=== PATIENT | female | born 1985 | race Caucasian/White ===

== ENCOUNTER 2016-10-08 13:59 | Inpatient (IN) | payer OTHER ==
--- NOTE | 2016-10-08 15:34 | PDOC ---
Attending Attestation - Resident Resident Name: Michael Briggs - ED Attending Attestation I have performed the following: I have examined & evaluated the patient, The case was reviewed & discussed with the resident, I agree w/resident's findings & plan, Exceptions are as noted - HPI HPI: 31 yo F hx factor V Leiden presents with multiple neuro symptoms. She states she has had bifrontal headache for the past few days, but has now developed R sided facial droop, L eye is shut tight, having difficulty opening it. She has had difficulty drinking, noting that she drools when she drinks. She also states she has had tingling to B/L hands and feet. She has had weakness in her extremities, noting that she almost dropped her child upon picking her up. The factor V Leiden was discovered after a miscarriage. She is not on any medication for it. Also of note, her dog was recently bitten by a tick. - Physicial Exam PE: GENERAL: Awake, alert, and fully oriented, in no acute distress HEAD: No signs of trauma EYES: PERRLA, EOMI, sclera anicteric, conjunctiva clear ENT: Auricles normal inspection, hearing grossly normal, nares patent, oropharynx clear without exudates. Moist mucosa NECK: Normal ROM, supple, no lymphadenopathy, JVD, or masses LUNGS: Breath sounds equal, clear to auscultation bilaterally. No wheezes, and no crackles HEART: Regular rate and rhythm, normal S1 and S2, no murmurs, rubs or gallops ABDOMEN: Soft, nontender, normoactive bowel sounds. No guarding, no rebound. No masses EXTREMITIES: Normal range of motion, no edema. No clubbing or cyanosis. No cords, erythema, or tenderness NEUROLOGICAL: R-sided facial droop involving the forehead. L eye shut tight with fine tremors to the upper eyelid. SKIN: Warm, Dry, normal turgor, no rashes or lesions noted. - Medical Decision Making Presentation is unusual- with weakness of the R face, L upper extremity, and numbness to hands and feet. L eye is shut tight with tremors, which does not correlate with Brown's palsy on the R side. Skin exam was performed- entire body , no ticks visualized, no rashes. Unclear what the etiology of the symptoms is, but concern for CVA (hypercoaguable state), possible Lyme, MS. Will obtain labs , Lyme titers, CTH, and consult with neuro.
[2016-10-08 16:28] LABS: BASOPHIL 0.7 % (0-2.0); EOSINOPHIL 1.3 % (0-4.5); MCH 29.8 pg (25.7-33.7); MEAN CELL VOLUME 87.5 fl (80-96); MEAN PLT VOLUME 9.4 fl (7.5-11.1); NEUTROPHILS 45.9 % (42.8-82.8); PLATELET COUNT 261 K/MM3 (134-434); WHITE BLOOD COUNT 8.2 K/mm3 (4.0-10.0)
[2016-10-08 16:30] LABS: URINE APPEARANCE SLCLOUDY; URINE BILIRUBIN NEGATIVE (NEGATIVE); URINE BLOOD 1+ (NEGATIVE); URINE COLOR STRAW; URINE GLUCOSE (UA) NEGATIVE (NEGATIVE); URINE KETONE NEGATIVE (NEGATIVE); URINE LEUK ESTERASE NEGATIVE (NEGATIVE); URINE NITRITE NEGATIVE (NEGATIVE); URINE PROTEIN NEGATIVE (NEGATIVE); URINE UROBILINOGEN NEGATIVE mg/dL (0.2-1.0)
[2016-10-08 16:33] LABS: URINE BACTERIA RARE /hpf (NONE SEEN); URINE MUCUS RARE; URINE RBC 14 /hpf (0-3); URINE WBC 1 /hpf (3-5)
[2016-10-08 17:00] LABS: INR 0.97 (0.82-1.09); PROTHROMBIN TIME (PATIENT) 10.7 SEC (9.98-11.88)
[2016-10-08 17:02] LABS: ACTIVATED PTT 32.7 SECONDS (26.9-34.4)
--- NOTE | 2016-10-08 17:21 | PDOC ---
History of Present Illness - General Chief Complaint: CVA/TIA Stated Complaint: R/O STROKE Time Seen by Provider: 10/08/16 14:31 History Source: Patient Exam Limitations: No Limitations - History of Present Illness Initial Comments: 10/08/16 16:34 The patient is a 31F with a PMH of hypothyroidism x 5 years and factor V Leiden who presents to the ED with 3 days of facial drooping. The patient states that she has had a headache x 1 week. 3 days ago her eye started getting low. She also states that she feels like her face "turned crooked". The patient also states that her fingers felt weak and that she could not drink out of a straw. She also states that she has hand and leg numbness x 1.5 weeks. This has never happened to the patient before. She has no recent travel, no sick contacts, no rashes, and no insect bites that the patient knows about. All: none Past History - Past Medical History Allergies/Adverse Reactions: Allergies Allergy/AdvReac Type Severity Reaction Status Date / Time No Known Allergies Allergy Verified 10/08/16 14:27 Home Medications: Ambulatory Orders Levothyroxine Sodium [Synthroid] 50 mcg PO DAILY 10/08/16 Anemia: No (FACTOR 5 LEIDEN) Thyroid Disease: Yes Other medical history: FACTOR 5 LITEN - Surgical History Cholecystectomy: Yes - Psycho/Social/Smoking Cessation Hx Anxiety: No Suicidal Ideation: No Smoking History: Never smoked Hx Alcohol Use: No Drug/Substance Use Hx: No Substance Use Type: None Review of Systems - Review of Systems Able to Perform ROS?: Yes Is the patient limited Italian proficient: No Constitutional: Yes: Chills, Night Sweats. No: Fever HEENTM: Yes: Blurred Vision (L eye) Cardiac (ROS): Yes: Chest Tightness : Yes: Frequency, Other (hx of kidney stones). No: Burning, Dysuria, Discharge Psychiatric: Yes: Other (Memory loss) *Physical Exam - Vital Signs Last Vital Signs Temp Pulse Resp BP Pulse Ox 98.6 F 98 H 20 152/108 99 10/08/16 14:01 10/08/16 14:01 10/08/16 14:01 10/08/16 14:01 10/08/16 14:01 - Physical Exam General Appearance: Yes: Nourished, Appropriately Dressed HEENT: positive: Normal Voice, Hearing Grossly Normal Respiratory/Chest: positive: Lungs Clear, Normal Breath Sounds. negative: Chest Tender, Respiratory Distress, Accessory Muscle Use, Labored Respiration Cardiovascular: positive: Regular Rhythm, Regular Rate, S1, S2. negative: Diastolic Murmur, Systolic Murmur Gastrointestinal/Abdominal: positive: Flat, Soft. negative: Tender Musculoskeletal: negative: CVA Tenderness, CVA Tenderness (R), CVA Tenderness (L ) Extremity: positive: Normal Inspection, Normal Range of Motion. negative: Pedal Edema, Swelling, Calf Tenderness Integumentary: positive: Dry, Warm. negative: Cold, Clammy, Diaphoresis Neurologic: positive: Fully Oriented, Alert, Normal Mood/Affect, Normal Response , Motor Strength 5/5 (5/5 on R; Starts 5/5 on L and then weakens), Respond to painful stimul, Responsive, Facial Droop, Numbness (on L face), Sensory Deficit (On L side of face), Other (L sided facial paralysis; CN3 not intact on L side. CN 7 not intact on eye.). 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, EOM Palsy, Confused , Disoriented ED Treatment Course - LABORATORY CBC & Chemistry Diagram: 10/09/16 06:15 10/09/16 06:15 - ADDITIONAL ORDERS Additional order review: Laboratory Results 10/08/16 15:54 Urine Color Straw Urine Appearance Slcloudy Urine pH 7.0 Urine Protein Negative Urine Glucose (UA) Negative Urine Ketones Negative Urine Blood 1+ H Urine Nitrite Negative Urine Bilirubin Negative Urine Urobilinogen Negative Ur Leukocyte Esterase Negative 10/08/16 16:15 RBC 4.99 MCV 87.5 MCHC 34.0 RDW 13.0 MPV 9.4 Neutrophils % 45.9 Lymphocytes % 45.2 H Monocytes % 6.9 Eosinophils % 1.3 Basophils % 0.7 - RADIOLOGY Radiology Studies Ordered: Category Date Time Status HEAD CT WITHOUT CONTRAST [CT] Stat CT Scan 10/08/16 15:41 Ordered Medical Decision Making - Medical Decision Making 10/08/16 17:26 The patient is a 31F with a PMH of hypothyroidism and factor V Leiden who presents with R facial paralysis with L sided sensory deficit. This patient's hypercoagulable state makes small clots very possible so I will do labs/imaging to rule this out. Will reassess when imaging returns. 10/08/16 19:22 Patient signed out to night team. *DC/Admit/Observation/Transfer Diagnosis at time of Disposition: Neurological abnormality - Attestations Physician Attestion: 10/09/16 08:11 I, Dr. Michael Briggs, attest that this document has been prepared under my direction and personally reviewed by me in its entirety. I further attest, that it accurately reflects all work, treatment, procedures, and medical decision- making performed by me.
[2016-10-08 17:32] LABS: ANION GAP 8 (8-16); BILIRUBIN,TOTAL 0.3 mg/dL (0.2-1.0); CALCIUM 9.7 mg/dL (8.5-10.1); CO2 28 mmol/L (21-32); CREATININE 0.6 mg/dL (0.55-1.02); GLUCOSE,RANDOM 79 mg/dL (74-106); SGOT/AST 12 U/L (15-37); SGPT/ALT 24 U/L (12-78); TOT PROT 7.9 g/dl (6.4-8.2)
[2016-10-08 17:33] LABS: ALK PHOS 79 U/L (45-117)
--- NOTE | 2016-10-08 20:33 | PDOC ---
*Physical Exam - Vital Signs Last Vital Signs Temp Pulse Resp BP Pulse Ox 98.5 F 94 H 18 133/76 100 10/08/16 19:13 10/08/16 19:13 10/08/16 19:13 10/08/16 19:13 10/08/16 19:13 ED Treatment Course - LABORATORY CBC & Chemistry Diagram: 10/08/16 16:15 10/08/16 16:15 - ADDITIONAL ORDERS Additional order review: Laboratory Results 10/08/16 10/08/16 10/08/16 16:15 16:15 15:54 INR 0.97 PTT (Actin FS) 32.7 Sodium 138 Potassium 4.0 Chloride 102 Carbon Dioxide 28 Anion Gap 8 BUN 13 Creatinine 0.6 Creat Clearance w eGFR > 60 Random Glucose 79 Calcium 9.7 Total Bilirubin 0.3 AST 12 L ALT 24 Alkaline Phosphatase 79 Total Protein 7.9 Albumin 5.0 Urine Color Straw Urine Appearance Slcloudy Urine pH 7.0 Urine Protein Negative Urine Glucose (UA) Negative Urine Ketones Negative Urine Blood 1+ H Urine Nitrite Negative Urine Bilirubin Negative Urine Urobilinogen Negative Ur Leukocyte Esterase Negative Urine RBC 14 Urine WBC 1 Ur Epithelial Cells Moderate Urine Bacteria Rare Urine Mucus Rare Urine HCG, Qual Negative 10/08/16 16:15 RBC 4.99 MCV 87.5 MCHC 34.0 RDW 13.0 MPV 9.4 Neutrophils % 45.9 Lymphocytes % 45.2 H Monocytes % 6.9 Eosinophils % 1.3 Basophils % 0.7 Progress Note - Progress Note Progress Note: Patient was a signout from Dr. Briggs Medical Decision Making - Medical Decision Making 10/08/16 20:55 Patient is a 31 year old female with a variety of neurological symptoms and joint pains for the last three months and 3 days of left facial drooping and weakness in the left arm Dr. Dela Cruz spoke with Dr. Fang who will see the patient in the hospital 10/08/16 22:27 Spoke with hospitalist who agrees to admission to [facility] under Dr. Tipton *DC/Admit/Observation/Transfer Diagnosis at time of Disposition: Neurological deficit present - Discharge Dispostion Condition at time of disposition: Stable Admit: Yes - Referrals Referrals: STAFF,NOT ON [Primary Care Provider] - - Attestations Physician Attestion: 10/08/16 22:31 I, Dr. Ede Shipley, attest that this document has been prepared under my direction and personally reviewed by me in its entirety. I further attest, that it accurately reflects all work, treatment, procedures and medical decision -making performed by me.
[2016-10-09 03:21] VITALS: BMI 21.9
--- NOTE | 2016-10-09 05:39 | PN ---
Teaching Attending Note Name of Resident: Dorian Castro ATTENDING PHYSICIAN STATEMENT I saw and evaluated the patient. I reviewed the resident's note and discussed the case with the resident. I agree with the resident's findings and plan as documented. SUBJECTIVE: 31 year old female with history of factor V Leiden mutation that presents to the ED c/o 3 days history of facial asymmetry that was preceded by 5 day history of facial numbness and 2-3 month of intermittent paresthesias , waxing and waning arm weakness. She denies syncope or LOC She has been seen by her primary care physician and referred to neurology however comes in today due to worsening of her symptoms . PMH Hypothyroidism Factor V Leiden Family History Two female cousins on her fathers side are affected with MS Home Medication List Medication Instructions Recorded Confirmed Type Levothyroxine Sodium [Synthroid] 50 mcg PO DAILY 10/08/16 10/08/16 History Active Medications Generic Name Dose Route Start Last Admin Trade Name Freq PRN Reason Stop Dose Admin Heparin Sodium (Porcine) 5,000 unit 10/09/16 10:00 Heparin - SQ BID [facility] Levothyroxine Sodium 50 mcg 10/09/16 07:00 Synthroid - PO DAILY@0700 [facility] OBJECTIVE: Vital Signs Temperature 98.1 F 10/08/16 23:00 Pulse Rate 72 10/08/16 23:00 Respiratory Rate 18 10/09/16 05:00 Blood Pressure 106/71 10/08/16 23:00 O2 Sat by Pulse Oximetry (%) 98 10/09/16 05:00 UPPER EXTREMITIES: 2+ pulses, warm, well-perfused. No cyanosis. No clubbing. No peripheral edema. LOWER EXTREMITIES: 2+ pulses, warm, well-perfused. No calf tenderness. No peripheral edema. NEUROLOGICAL: PERRLA, EOMI, decrease pin prick and light touch of entire left side. Uvula deviated to Right. Right facial droop. 5/5 strength on right upper and lower ext. 4/5 on left upper and lower ext. 2+ reflexes throughout. Left eye ptosis. PSYCHIATRIC: Cooperative. Good eye contact. Appropriate mood and affect. CBC, BMP 10/08/16 16:15 10/08/16 16:15 CT brain is negative ASSESSMENT AND PLAN: 1. Intermittent waxing and waning neurological deficit over the course of 2-3 month in a young female with family history of MS - neurology evaluation - MRI brain with contrast - speech and swalow evaluation r/o dysphagia - PT eval 2. Factor V Leiden - no history of DVT , asympthomatic therefore not on anticoagulation - o/p follow up 3. Hypothyroidism - stable - c/w current meds 4. DVT ppx - heparin due to high risk
--- NOTE | 2016-10-09 05:39 | HP ---
CHIEF COMPLAINT: facial droop. PCP: HISTORY OF PRESENT ILLNESS: 31F with a PMH of hypothyroidism x 5 years and factor V Leiden who presents to the ED with 3 days of facial drooping. She states that her problems began a few months ago with pins and needles of her hands and legs with associated weakness. She saw her PCP who refered her to Neurologist. She did not follow up. 3 weeks ago while at work her right eye just closed on her and when she manually opened it she had double vision. This lasted for about an hour and resolved spontaneously. Since then she has been experiencing multiple neurological symptoms of weakness and parasthesias that last for about an hour or so and resolve on there one. This morning when she awoke she noticed her face was "crooked" and eyelid close. She went about her day thinking it would resolve on its own. When is did not she came to ER. Denies pain, CP, WILLS, sob, palpitations, abd. pain, N/V, fever, chills or recent illness. ER course was notable for: (1)CT head was negative for IC bleed or mass (2)EKG showed NSR with no ST or T wave abnormalities. (3)Urine Hcg negative Recent Travel:Denies PAST MEDICAL HISTORY:Factor V , hypothyroidism PAST SURGICAL HISTORY:none Social History: Smoking:never Alcohol:socially Drugs: denies Family History: 2 paternal 1st degree cousins with MS Allergies No Known Allergies Allergy (Verified 10/08/16 14:27) HOME MEDICATIONS: Home Medications Medication Instructions Recorded Levothyroxine Sodium [Synthroid] 50 mcg PO DAILY 10/08/16 REVIEW OF SYSTEMS CONSTITUTIONAL: Absent: fever, chills, diaphoresis, generalized weakness, malaise, loss of appetite, weight change HEENT: Absent: rhinorrhea, nasal congestion, throat pain, throat swelling, difficulty swallowing, mouth swelling, ear pain, eye pain, visual changes CARDIOVASCULAR: Absent: chest pain, syncope, palpitations, irregular heart rate, lightheadedness , peripheral edema RESPIRATORY: Absent: cough, shortness of breath, dyspnea with exertion, orthopnea, wheezing, stridor, hemoptysis GASTROINTESTINAL: Absent: abdominal pain, abdominal distension, nausea, vomiting, diarrhea, constipation, melena, hematochezia GENITOURINARY: Absent: dysuria, frequency, urgency, hesitancy, hematuria, flank pain, genital pain MUSCULOSKELETAL: Absent: myalgia, arthralgia, joint swelling, back pain, neck pain SKIN: Absent: rash, itching, pallor HEMATOLOGIC/IMMUNOLOGIC: Absent: easy bleeding, easy bruising, lymphadenopathy, frequent infections ENDOCRINE: Absent: unexplained weight gain, unexplained weight loss, heat intolerance, cold intolerance NEUROLOGIC: focal weakness or paresthesias Absent: headache, , dizziness, unsteady gait, seizure, mental status changes, bladder or bowel incontinence PSYCHIATRIC: Absent: anxiety, depression, suicidal or homicidal ideation, hallucinations. PHYSICAL EXAMINATION Vital Signs - 24 hr 10/08/16 10/09/16 23:00 05:00 Temperature 98.1 F Pulse Rate 72 Respiratory 18 18 Rate Blood Pressure 106/71 O2 Sat by Pulse 98 98 Oximetry (%) GENERAL: Awake, alert, and fully oriented, in no acute distress. HEAD: Normal with no signs of trauma. EYES: Pupils equal, round and reactive to light, extraocular movements intact, sclera anicteric, conjunctiva clear. No lid lag. EARS, NOSE, THROAT: Ears normal, nares patent, oropharynx clear without exudates. Moist mucous membranes. NECK: supple without lymphadenopathy, JVD, or masses. LUNGS: CTAB. No wheezes, and no crackles. No accessory muscle use. HEART: RRR, normal S1 and S2 ,no m/g/r ABDOMEN: Soft, nontender, not distended, normoactive bowel sounds, no guarding, no rebound, no masses. No hepatomegaly or splenomegaly. MUSCULOSKELETAL: Normal range of motion at all joints. No bony deformities or tenderness. No CVA tenderness. UPPER EXTREMITIES: 2+ pulses, warm, well-perfused. No cyanosis. No clubbing. No peripheral edema. LOWER EXTREMITIES: 2+ pulses, warm, well-perfused. No calf tenderness. No peripheral edema. NEUROLOGICAL: PERRLA, EOMI, decrease pin prick and light touch of entire left side. Uvula deviated to Right. Right facial droop. 5/5 strength on right upper and lower ext. 4/5 on left upper and lower ext. 2+ reflexes throughout. Romberg (-), No PSYCHIATRIC: Cooperative. Good eye contact. Appropriate mood and affect. SKIN: Warm, dry, normal turgor, no rashes or lesions noted, normal capillary refill. ASSESSMENT/PLAN: 31F with a PMH of hypothyroidism x 5 years and factor V Leiden admitted for neurological disturbance possible MS. Problem List - Problem (1) Neurological abnormality Assessment/Plan: * Possible MS * Neuro consult Dr. Fang * MRI pending. * CT head negative for acute pathology or mass. * IVF with NS @ 100ml/hr * Neuro checks Q4H (2) Hypothyroidism (acquired) Assessment/Plan: * Continue Levothyroxin. Visit type - Emergency Visit Emergency Visit: Yes ED Registration Date: 10/08/16 Care time: The patient presented to the Emergency Department on the above date and was hospitalized for further evaluation of their emergent condition. - New Patient This patient is new to me today: Yes Date on this admission: 10/09/16 - Critical Care Critical Care patient: No
[2016-10-09] MEDS: LEVOTHYROXINE NA 50 MCG TABLET (FP) PO SCH (06:43)
[2016-10-09 07:11] LABS: BASOPHIL 0.3 % (0-2.0); MCH 29.4 pg (25.7-33.7); MCHC 33.5 g/dl (32.0-36.0); MEAN CELL VOLUME 87.7 fl (80-96); MEAN PLT VOLUME 9.1 fl (7.5-11.1); PLATELET COUNT 243 K/MM3 (134-434); RDW 13.2 % (11.6-15.6); WHITE BLOOD COUNT 8.3 K/mm3 (4.0-10.0)
[2016-10-09 07:26] LABS: ALBUMIN 3.9 g/dl (3.4-5.0); ANION GAP 13 (8-16); BILIRUBIN,TOTAL 0.6 mg/dL (0.2-1.0); CALCIUM 9.1 mg/dL (8.5-10.1); CO2 23 mmol/L (21-32); CREATININE 0.6 mg/dL (0.55-1.02); GLUCOSE,RANDOM 96 mg/dL (74-106); MAGNESIUM 1.9 mg/dL (1.8-2.4); PHOSPHOROUS 4.1 mg/dL (2.5-4.9); SGOT/AST 13 U/L (15-37); SGPT/ALT 23 U/L (12-78); TOT PROT 7.2 g/dl (6.4-8.2)
[2016-10-09 07:27] LABS: ALK PHOS 69 U/L (45-117)
[2016-10-09] MEDS: HEPARIN NA (PORCINE) 5,000 UNITS/ML 1ML VIAL SQ SCH ×2 (09:08→21:20)
--- NOTE | 2016-10-09 10:16 | PN ---
Physical Exam: SUBJECTIVE: Patient seen and examined. Her left eye is opening better. She feels that the right side of her face is weak and notes that her right eye is blinking less frequently than her left eye. She also reports left hand and left leg weakness. OBJECTIVE: Vital Signs Period Temp Pulse Resp BP Sys/Cortes Pulse Ox Last 24 Hr 98.1 F 72 18-18 106/71 98-98 GENERAL: The patient is awake, alert, and fully oriented, in no acute distress. NECK: Trachea midline, full range of motion, supple. LUNGS: Breath sounds equal, clear to auscultation bilaterally, no wheezes, no crackles, no accessory muscle use. HEART: Regular rate and rhythm, S1, S2 without murmur, rub or gallop. ABDOMEN: Soft, nontender, nondistended, normoactive bowel sounds, no guarding, no rebound, no hepatosplenomegaly, no masses. EXTREMITIES: 2+ pulses, warm, well-perfused, no edema. NEUROLOGICAL: Right facial weakness. Weakness of right upper eyelid. Tongue deviates to left. Speech normal. Left hand grasp 4+/5, right hand grasp 5/5. LLE strength 4+/5, RLE strength 5/5. Decreased sensation over left face. DTRs 2+ . Plantar reflexes downgoing. Laboratory Results - last 24 hr 10/09/16 10/09/16 06:15 06:15 WBC 8.3 RBC 4.77 Hgb 14.0 Hct 41.9 MCV 87.7 MCH 29.4 MCHC 33.5 RDW 13.2 Plt Count 243 MPV 9.1 Neutrophils % 48.0 Lymphocytes % 42.9 H Monocytes % 6.8 Eosinophils % 2.0 Basophils % 0.3 Sodium 138 Potassium 4.6 Chloride 102 Carbon Dioxide 23 Anion Gap 13 BUN 12 Creatinine 0.6 Creat Clearance w eGFR > 60 Random Glucose 96 D Calcium 9.1 Phosphorus 4.1 Magnesium 1.9 Total Bilirubin 0.6 D AST 13 L ALT 23 Alkaline Phosphatase 69 Total Protein 7.2 Albumin 3.9 D Active Medications Generic Name Dose Route Start Last Admin Trade Name Freq PRN Reason Stop Dose Admin Heparin Sodium (Porcine) 5,000 unit 10/09/16 10:00 10/09/16 09:08 Heparin - SQ 5,000 unit BID [facility] Administration Levothyroxine Sodium 50 mcg 10/09/16 07:00 10/09/16 06:43 Synthroid - PO 50 mcg DAILY@0700 [facility] Administration ASSESSMENT/PLAN: This is a 31-year-old woman with a history of hypothyroidism, factor V mutation who presented to the ER with facial droop and left-sided weakness. 1. Right facial weakness - Possible Brown palsy - Has family history of MS - Head CT negative - MRI of brain pending - Lyme titer pending - Awaiting neurology consult 2. Hypothyroidism - Continue Synthroid - Check TSH 3. Factor V mutation Visit type - Emergency Visit Emergency Visit: Yes ED Registration Date: 10/08/16 Care time: The patient presented to the Emergency Department on the above date and was hospitalized for further evaluation of their emergent condition. - New Patient This patient is new to me today: Yes Date on this admission: 10/09/16 - Critical Care Critical Care patient: No - Discharge Referral Referred to [facility] Med P.C.: No
--- NOTE | 2016-10-09 12:57 | CONSULT ---
Consult - text type - Consultation Consultation Note: Neurology History of Present Illness The patient is a 31F with a PMH of hypothyroidism x 5 years and factor V Leiden who presents to the ED with 3 days of L facial drooping. The patient states that she has had a headache x 1 week. 3 days ago her eye started getting low. This has never happened to the patient before. She has no recent travel, no sick contacts, no rashes, and no insect bites that the patient knows about. She states she had family history of MS in her two cousins. 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 She states she has a father who lives in [facility] and was concerned about Lyme. For months she has been having Left arm and leg sensory dysthesia and 5-/ [address] head completed and normal. MRI brain completed and reviewed, I also reviewed images and no evidence of MS or CVA. All: none Past History - Past Medical History Allergies/Adverse Reactions: Allergies Allergy/AdvReac Type Severity Reaction Status Date / Time No Known Allergies Allergy Verified 10/08/16 14:27 Home Medications: Ambulatory Orders Levothyroxine Sodium [Synthroid] 50 mcg PO DAILY 10/08/16 Anemia: No (FACTOR 5 LEIDEN) Thyroid Disease: Yes Other medical history: FACTOR 5 LITEN - Surgical History Cholecystectomy: Yes - Psycho/Social/Smoking Cessation Hx Anxiety: No Suicidal Ideation: No Smoking History: Never smoked Hx Alcohol Use: No Drug/Substance Use Hx: No Substance Use Type: None Review of Systems - Review of Systems Able to Perform ROS?: Yes Is the patient limited Italian proficient: No Constitutional: Yes: Chills, Night Sweats. No: Fever HEENTM: Yes: Blurred Vision (L eye) Cardiac (ROS): Yes: Chest Tightness : Yes: Frequency, Other (hx of kidney stones). No: Burning, Dysuria, Discharge Psychiatric: Yes: Other (Memory loss) *Physical Exam - Vital Signs Last Vital Signs Temp Pulse Resp BP Pulse Ox 98.1 F 72 18 106/71 98 10/08/16 23:00 10/08/16 23:00 10/09/16 05:00 10/08/16 23:00 10/09/16 05:00 - Physical Exam General Appearance: Yes: Nourished, Appropriately Dressed HEENT: positive: Normal Voice, Hearing Grossly Normal Respiratory/Chest: positive: Lungs Clear, Normal Breath Sounds. negative: Chest Tender, Respiratory Distress, Accessory Muscle Use, Labored Respiration Cardiovascular: positive: Regular Rhythm, Regular Rate, S1, S2. negative: Diastolic Murmur, Systolic Murmur Gastrointestinal/Abdominal: positive: Flat, Soft. negative: Tender Musculoskeletal: negative: CVA Tenderness, CVA Tenderness (R), CVA Tenderness (L ) Extremity: positive: Normal Inspection, Normal Range of Motion. negative: Pedal Edema, Swelling, Calf Tenderness Integumentary: positive: Dry, Warm. negative: Cold, Clammy, Diaphoresis Neurologic: positive: Fully Oriented, Alert, Normal Mood/Affect, Normal Response , Motor Strength 5/5 on R, 5-/5 in LUE and LLE, L Facial Droop, Numbness (on L face), Decreased PP on L compared to R, ambulates without ataxia, finger to nose normal Laboratory Results 10/08/16 15:54 Urine Color Straw Urine Appearance Slcloudy Urine pH 7.0 Urine Protein Negative Urine Glucose (UA) Negative Urine Ketones Negative Urine Blood 1+ H Urine Nitrite Negative Urine Bilirubin Negative Urine Urobilinogen Negative Ur Leukocyte Esterase Negative 10/08/16 16:15 RBC 4.99 MCV 87.5 MCHC 34.0 RDW 13.0 MPV 9.4 Neutrophils % 45.9 Lymphocytes % 45.2 H Monocytes % 6.9 Eosinophils % 1.3 Basophils % 0.7 - RADIOLOGY MRI and CT reviewed in detail Medical Decision Making 31F with a PMH of hypothyroidism x 5 years and factor V Leiden who presents to the ED with 3 days of L facial drooping. The patient states that she has had a headache x 1 week. 3 days ago her eye started getting low. This has never happened to the patient before. She has no recent travel, no sick contacts, no rashes, and no insect bites that the patient knows about. She states she had family history of MS in her two cousins. 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 She states she has a father who lives in [facility] and was concerned about Lyme. For months she has been having Left arm and leg sensory dysthesia and 5-/[address] head completed and normal. MRI brain completed and reviewed, I also reviewed images and no evidence of MS or CVA. 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 Steroids, eye hydration, facial exercises, acyclovir. Spoke to patient in detail regarding MRI and does not require imaging again now but possibly recheck as outpatient. Check LYme, would also check immuno possibilities (Lupus?, etc). Physical therapy also recommended to patient. COntinue Levothyroxine for hypothyroid, moniter TSH.
[2016-10-09] MEDS: predniSONE 20 MG TABLET (UD) PO SCH (15:24)
--- NOTE | 2016-10-09 20:43 | EKG ---
Test Reason : Blood Pressure : / mmHG Vent. Rate : 083 BPM Atrial Rate : 083 BPM P-R Int : 142 ms QRS Dur : 084 ms QT Int : 368 ms P-R-T Axes : 067 021 039 degrees QTc Int : 432 ms NORMAL SINUS RHYTHM WITH SINUS ARRHYTHMIA NORMAL ECG NO PREVIOUS ECGS AVAILABLE Confirmed by TYLER CARSON, IVÁN ([id number]) on 10/09/2016 8:43:07 PM Referred By: Confirmed By:IVÁN SCOTT MD
[2016-10-09] MEDS: valACYclovir HCL 500 MG TABLET (FP) PO SCH (21:20)
[2016-10-10] MEDS: LEVOTHYROXINE NA 50 MCG TABLET (FP) PO SCH (06:24)
[2016-10-10 07:28] LABS: C-REACTIVE PROTEIN < 0.3 MG/DL (0.00-0.3)
[2016-10-10 07:32] LABS: THYROID STIMULATING HORMONE 0.57 uIU/ml (0.358-3.74)
--- NOTE | 2016-10-10 09:57 | PN ---
Progress Note (short form) - Note Progress Note: Neurology History of Present Illness The patient is a 31F with a PMH of hypothyroidism x 5 years and factor V Leiden who presents to the ED with 3 days of L facial drooping. The patient states that she has had a headache x 1 week. 3 days ago her eye started getting low. This has never happened to the patient before. She has no recent travel, no sick contacts, no rashes, and no insect bites that the patient knows about. She states she had family history of MS in her two cousins. 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 She states she has a father who lives in [facility] and was concerned about Lyme. For months she has been having Left arm and leg sensory dysthesia and 5-/ [address] head completed and normal. MRI brain completed and reviewed, I also reviewed images and no evidence of MS or CVA. Patient treated for Brown's Palsy and reports continued improvement kelly with eye patient and oral steroids. Rheum workup ordered to rule out infectious etiologies, labs pending. Past History - Past Medical History Allergies/Adverse Reactions: Allergies Allergy/AdvReac Type Severity Reaction Status Date / Time No Known Allergies Allergy Verified 10/08/16 14:27 Home Medications: Ambulatory Orders Levothyroxine Sodium [Synthroid] 50 mcg PO DAILY 10/08/16 Anemia: No (FACTOR 5 LEIDEN) Thyroid Disease: Yes Other medical history: FACTOR 5 LITEN - Surgical History Cholecystectomy: Yes - Psycho/Social/Smoking Cessation Hx Anxiety: No Suicidal Ideation: No Smoking History: Never smoked Hx Alcohol Use: No Drug/Substance Use Hx: No Substance Use Type: None Review of Systems - Review of Systems Able to Perform ROS?: Yes Is the patient limited Faroese proficient: No Constitutional: Yes: Chills, Night Sweats. No: Fever HEENTM: Yes: Blurred Vision (L eye) Cardiac (ROS): Yes: Chest Tightness : Yes: Frequency, Other (hx of kidney stones). No: Burning, Dysuria, Discharge Psychiatric: Yes: Other (Memory loss) *Physical Exam - Vital Signs Last Vital Signs Temp Pulse Resp BP Pulse Ox 98.1 F 72 18 106/71 98 10/08/16 23:00 10/08/16 23:00 10/09/16 05:00 10/08/16 23:00 10/09/16 05:00 - Physical Exam General Appearance: Yes: Nourished, Appropriately Dressed HEENT: positive: Normal Voice, Hearing Grossly Normal Respiratory/Chest: positive: Lungs Clear, Normal Breath Sounds. negative: Chest Tender, Respiratory Distress, Accessory Muscle Use, Labored Respiration Cardiovascular: positive: Regular Rhythm, Regular Rate, S1, S2. negative: Diastolic Murmur, Systolic Murmur Gastrointestinal/Abdominal: positive: Flat, Soft. negative: Tender Musculoskeletal: negative: CVA Tenderness, CVA Tenderness (R), CVA Tenderness (L ) Extremity: positive: Normal Inspection, Normal Range of Motion. negative: Pedal Edema, Swelling, Calf Tenderness Integumentary: positive: Dry, Warm. negative: Cold, Clammy, Diaphoresis Neurologic: positive: Fully Oriented, Alert, Normal Mood/Affect, Normal Response , Motor Strength 5/5 on R, 5-/5 in LUE and LLE, L Facial Droop, Numbness (on L face), Decreased PP on L compared to R, ambulates without ataxia, finger to nose normal Laboratory Results 10/08/16 15:54 Urine Color Straw Urine Appearance Slcloudy Urine pH 7.0 Urine Protein Negative Urine Glucose (UA) Negative Urine Ketones Negative Urine Blood 1+ H Urine Nitrite Negative Urine Bilirubin Negative Urine Urobilinogen Negative Ur Leukocyte Esterase Negative 10/08/16 16:15 RBC 4.99 MCV 87.5 MCHC 34.0 RDW 13.0 MPV 9.4 Neutrophils % 45.9 Lymphocytes % 45.2 H Monocytes % 6.9 Eosinophils % 1.3 Basophils % 0.7 - RADIOLOGY MRI and CT reviewed in detail Medical Decision Making 31F with a PMH of hypothyroidism x 5 years and factor V Leiden who presents to the ED with 3 days of L facial drooping. The patient states that she has had a headache x 1 week. 3 days ago her eye started getting low. This has never happened to the patient before. She has no recent travel, no sick contacts, no rashes, and no insect bites that the patient knows about. She states she had family history of MS in her two cousins. 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 She states she has a father who lives in [facility] and was concerned about Lyme. For months she has been having Left arm and leg sensory dysthesia and 5-/[address] head completed and normal. MRI brain completed and reviewed, I also reviewed images and no evidence of MS or CVA. 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 Steroids, eye hydration, facial exercises, acyclovir. Spoke to patient in detail regarding MRI and does not require imaging again now but possibly recheck as outpatient. Check Lyme, would also check immuno possibilities (Lupus?, etc). Labs ordered. Acylcovir given, oral steroids helpful. Physical therapy also recommended to patient. COntinue Levothyroxine for hypothyroid, moniter TSH. Patient likely for discharge but I would recommend she be plugged in with heme for Factor 5 deficiency and rheum if lyme , lupus, etc. are positive. Facial exercises discussed.
[2016-10-10] MEDS: predniSONE 20 MG TABLET (UD) PO SCH (10:34)
[2016-10-10] MEDS: HEPARIN NA (PORCINE) 5,000 UNITS/ML 1ML VIAL SQ SCH (10:34)
[2016-10-10] MEDS: valACYclovir HCL 500 MG TABLET (FP) PO SCH (10:35)
--- NOTE | 2016-10-10 12:34 | CONSULT ---
Admitting History and Physical - Primary Care Physician PCP: Francois Buchanan - Admission History of Present Illness: 31F with RIGHT facial droop with dx of Brown's palsy. CT head/MRI brain both (-) . Lyme titer and rhematology consult rec by Neurology History Source: Patient, Medical Record Limitations to Obtaining History: No Limitations - Past Medical History ...LMP: 09/23/16 ...: No - Smoking History Smoking history: Never smoked - Alcohol/Substance Use Hx Alcohol Use: No History - Admission Reason For Visit: NEUROLOGICAL ABNORMALITY - Diagnostics CT Scan: Report Reviewed MRI: Report Reviewed - General Mental Status: Alert and Oriented, Awake and Alert, Able to Follow Commands Attention: Intact Ability to Follow Directions: Excellent Head/Neck Control: WFL - Hearing Hearing: Normal, Both Speech Evaluation - Communication Primary Language: GREENLANDIC Communication: Yes: Within Normal Limits Oral Expression Ability: Yes: Mild Impairment - Speech Production Able to Make Needs Known: Yes: WNL Intelligibility: Yes: Mildly Impaired - Speech Characteristics Voice Loudness: Normal Voice Pitch: Yes: Normal Voice Phonatory-based Quality: Yes: Normal Speech Clarity: < 100% Nasal Resonance: Normal Articulation: Yes: Imprecise (bilabial phonemes, slight imprecision.) - Language/Auditory Comprehension Follows: Yes: 2 Stage Simple Commands - Language/Verbal Expression Able to Respond to Simple Queries: Yes: WNL Able to Communicate Wants and Needs: Yes: WNL Functional Communication Status: Yes: WNL - Swallow Evaluation/Bedside Assessment Current Nutritional Intake: Regular, Thin Liquids Oral Secretions: Yes: WFL Dentition: Yes: Adequate Facial Symmetry at Rest: Facial Droop Right (complete) Facial Symmetry on Retraction: Facial Droop Right (complete) Against Resistance Opening: Weak (right) Pucker Lips: Droops Right (complete) Smile: Droops Right (complete) Lingual Movement: Symmetric Lingual Speed of Movement: Normal Lingual Movement Strgth Against Opposition: Normal Lingual Movement Characteristics: Normal Velopharyngeal Movement: Normal Laryngeal Elevation: WFL Laryngeal Movement: Able to Palpate Rate of Intake: WFL Bolus Size: WFL Labial Seal: Impaired Right (anterior leakage of liguids) Chewing: WFL Oral Prep Time: WFL A-P Transit: WFL Pocketing: Present Right Timing of Swallow: WFL Coughing/Throat Clear: No Change in Voice: No Recommendations - Speech Evaluation, Impression/Plan Impression: Pt with dx of Right brown's palsy. Right facial weakness of upper and lower region. Seen wearing eye patch. With patch removed, pt was capable of almost complete closure of eye upon command.Anterior leakage of liguids. No retraction/pursing of lower face. Drooling out of right side of mouth, predominantly while drinking, said to be improving. - Dysphagia Impressions/Plan Dysphagia Treatment Plan: Labial Exercises, Buccal Exercises Recommendations: Other (Pt educated on facial exercises to improve right facial/ eye closure and printed instructions provided.) - Recommendations Diet Consistency: Regular Medication Administration: Whole with water Liquids: Thin Liquids, Other (straw as needed.)
[2016-10-10 14:45] VITALS: BP 121/62; PULSE 108; TEMP 98
--- NOTE | 2016-10-10 15:26 | DS ---
Physical Exam: SUBJECTIVE: Patient seen and examined. No new complaints this am. Patient reports feeling better today, says the weakness of the L side of her body is improved. OBJECTIVE: Vital Signs Period Temp Pulse Resp BP Sys/Cortes Pulse Ox Last 24 Hr 98.0 F-98.8 F 81-108 16-18 116-128/62-77 98-98 PHYSICAL EXAM GENERAL: The patient is awake, alert, and fully oriented, in no acute distress. HEAD: No signs of trauma. Facial asymmetry with absent nasolabial crease on the R and reduced forehead folds on the R EYES: R eye patch removed, PERRLA, sclera anicteric, conjunctiva clear. ENT: Ears normal, nares patent, oropharynx clear without exudates, moist mucous membranes, tongue deviated to the L. NECK: Trachea midline, full range of motion, supple. LUNGS: Breath sounds equal, clear to auscultation bilaterally, no wheezes, no crackles, no accessory muscle use. HEART: Regular rate and rhythm, S1, S2 without murmur, rub or gallop. ABDOMEN: Soft, nontender, nondistended, normoactive bowel sounds, no guarding, no rebound, no hepatosplenomegaly, no masses. EXTREMITIES: 2+ pulses, warm, well-perfused, no edema. NEUROLOGICAL: Facial asymmetry with absent nasolabial crease on the R and reduced forehead crease on the R. Deviation of tongue to L. Muscle strength on R UL and LL 5/5. Muscle strength on L UL and LL 5/5. Sensation intact bilaterally. Mild slurring of speech, gait normal. PSYCH: Normal mood, normal affect. SKIN: Warm, dry, normal turgor, no rashes or lesions noted. LABS Laboratory Results - last 24 hr 10/10/16 10/10/16 06:10 06:10 ESR 1 C-Reactive Protein < 0.3 TSH 0.57 HOSPITAL COURSE: Date of Admission:10/08/16 Date of Discharge: 10/10/16 31 Year old female admitted for R facial nerve weakness and left hemiparesis. Patient had a CT scan head which was negative, followed by an MRI of brain w/ without which did not show any evidence of any CVA but could not R/O any demyelinating disease. Patient significantly improved. Work up sent for Lyme and Rheumatological disorders Started on Valacyclovir and prednisone to complete 7 days course. 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 and see PCP- Dr. Ugarte. Discharged home: On prednisone tabs and valacyclovir Artificail tears and ointment for eye care Minutes to complete discharge: 45 Discharge Summary Reason For Visit: NEUROLOGICAL ABNORMALITY Current Active Problems Brown's palsy (Acute) Hemiparesis (Acute) Neurological abnormality (Acute) Hypothyroidism (acquired) (Chronic) Condition: Improved - Instructions Diet, Activity, Other Instructions: Regular diet, Eye care:Wear an eye patch at night, do not tape the eye incase the tape comes off and scratches the cornea Use eye ointment at night and eyedrops in the day time. Please follow up with your primary care doctor, if you do not have one, follow up with Dr Thompson. Continue your medications for thyroid (synthroid) Please take all your medications as prescribed On the last 2 days of your steroid treatment please take only 40 mg If you develop worsening of your symptoms please call your primary care doctor or go to the nearest emergency room. Referrals: Francois Corona MD [Staff Physician] - Osiel Fang MD [Staff Physician] - 1 Week STAFF,NOT ON [Primary Care Provider] - 1 Week Paul Moya MD [Staff Physician] - 2 Weeks (for factor V leiden mutation) Disposition: HOME - Home Medications Comprehensive Discharge Medication List: Ambulatory Orders Levothyroxine Sodium [Synthroid] 50 mcg PO DAILY 10/08/16 Hypromellose 0.5% Opth Soln [Artificial Tears] 1 drop OD BID #1 dropsbtl Mineral Oil/Petrolatum,White [Advanced Eye Relief Opth Oint] 1 applic OD HS #3 tube 10/10/16 Prednisone [Deltasone -] 60 mg PO DAILY #13 tablet 10/10/16 Valacyclovir HCl [Valtrex -] 500 mg PO BID #10 tablet 10/10/16 This patient is new to me today: Yes Date on this admission: 10/10/16 Emergency Visit: Yes ED Registration Date: 10/08/16 Care time: The patient presented to the Emergency Department on the above date and was hospitalized for further evaluation of their emergent condition. Critical Care patient: No - Discharge Referral Referred to [facility] Med P.C.: No
--- NOTE | 2016-10-10 18:35 | PN ---
Teaching Attending Note Name of Resident: Jossy Garg ATTENDING PHYSICIAN STATEMENT I saw and evaluated the patient. I reviewed the resident's note and discussed the case with the resident. I agree with the resident's findings and plan as documented. SUBJECTIVE: feels much stronger in L leg and arm. no fever or chills. OBJECTIVE: NAD CV : RRR Lungs : CTAB Ext : no edema Neuro : R upper and lower facial droop, EOMI, round equal pupils , reactive to light . nl facial sensation . tongue at mid line. 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 reflexes 2+ knee jerk and biceps ASSESSMENT AND PLAN: 31-year-old woman with a history of hypothyroidism, factor V mutation who presented to the ER with facial droop and left-sided weakness. 1- R facial weakness ( stable ) and L sided weakness ( improved ) . R sided facial weakness suggest peripheral nerve palsy, and not sure what caused L sided weakness. NO stroke on MRI, still demyelinating disease can't be r/o. - f/u with neuro for complete w/u - cont valcyclovir and prednisone for total of 1 week - strict eye lubrication and closure at night - further rheum f/u and w/u for recurrnet joint pain and swelling - f/u withheme dc home
[2016-10-14 00:06] LABS: C-ANCA <1:20 titer (Neg:<1:20); MYELOPEROXIDASE ANTIBODY <9.0 U/mL (0.0-9.0); P-ANCA <1:20 titer (Neg:<1:20); PROTEINASE-3 ANTIBODY <3.5 U/mL (0.0-3.5)
== END 2016-10-10 16:47 | disposition home or self-care (01) | DRG 74 ==
LOC: JER 13:59 → JERBED 22:44 → J5S 10-09 00:45
PROVIDERS: ADMIT Internal Medicine; ATTEND Internal Medicine
DX: G51.0 Bell's palsy (principal); D68.51 Activated protein C resistance; G81.94 Hemiplegia, unspecified affecting left nondominant side; E03.9 Hypothyroidism, unspecified; R29.704 NIHSS score 4
CPT/HCPCS: 36415; 70450-TC; 70552-TC; 80053; 81003; 81015; 83520; 83735; 84100; 84443; 84703; 85025; 85610; 85651; 85730; 86038; 86140; 86256; 93005; 93010; 97116-GP; 97161-GP; 99285-25; J1644